=== PATIENT | male | born 1985 | race Caucasian/White ===

== ENCOUNTER 2019-03-16 20:23 | Emergency (ER) | payer BC ==
[~2019-03-16] VITALS: Ht 167.6 cm; Wt 86.5 kg
[~2019-03-16 20:23] MED LIST: EMTR1TAB11 PO; IBUP-1542 PO; ISEN400 PO
[2019-03-16 20:25] VITALS: BP 147/86; PULSE 82; RESP 16; Ht 167.6 cm; Wt 86.5 kg
[2019-03-16] MEDS ORDERED: IBUPROFEN 600 MG TAB PO ONE (21:00)
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
== END 2019-03-16 21:18 | disposition home or self-care (01) ==
LOC: E/R 20:23
DX: S33.5XXA Sprain of ligaments of lumbar spine, initial encounter (principal); S23.9XXA Sprain of unspecified parts of thorax, initial encounter; V43.52XA Car driver injured in collision with other type car in traffic accident, initial encounter
CPT/HCPCS: 99282